=== PATIENT | male | born 1965 | race Caucasian/White ===

== ENCOUNTER 2023-05-29 11:50 | Emergency (ER) | payer BC, SELFPAY ==
--- NOTE | ~2023-05-29 | CT_ITS ---
EXAMINATION: 1. CT facial & cervical spine wo DATE: 05/29/2023 13:24 INDICATION: Headache and left-sided jaw pain post left-sided head/facial injury TECHNIQUE: 1. Computed tomography (CT) of the maxillofacial region and of the cervical spine were performed with out intravenous contrast. Sagittal and coronal reconstructions of both regions were obtained. Automat ed exposure control and iterative reconstruction technique were employed. The dose-length product was 406.02 mGy-cm. COMPARISON: None. FINDINGS: Maxillofacial CT: Bilateral temporomandibular joints remain in normal alignment with mild bilateral osteoarthritis. No maxillofacial fractures identified. Specifically the mandible, nasal bones, zygomatic arches and wall s of the orbits and paranasal sinuses remain normal. There is mild scattered mucoperiosteal thickenin g in the paranasal sinuses. Mastoid air cells and middle ear cavities are clear. Maxillofacial soft t issues are unremarkable with normal symmetric appearing bilateral parotid and submandibular glands. Cervical spine CT: 6 degrees cervical levocurvature. Straightening of the normal cervical lordosis. No spondylolisthesis or facet subluxation. Vertebral body heights are normal. No acute fractures. Moderate osteoarthritis at the atlantoaxial articulation. Moderate disc height loss at C4-C5, C6-C7 and C7-T1 and mild disc height loss at C5-C6. Severe bilateral uncovertebral osteoarthritis at C4-C5, moderate uncovertebral osteoarthritis on the right at C6-C7 and on the left at C7-T1. Otherwise mild scattered cervical unco vertebral osteoarthritis. Disc bulges at C3-C4 through C6-C7 resulting in multilevel mild central can al stenosis greatest at C4-C5. There is multilevel mild cervical facet osteoarthritis. There is multi level cervical neural foraminal stenosis, mild to moderate severity on the right at C3-C4 and bilater ally at C7-T1 with mild stenosis at many of the remaining cervical neural foramina. Cervical soft tis sues are unremarkable. IMPRESSION: 1. No maxillofacial fractures. 2. Moderate cervical spondylosis without acute osseous abnormality. Reviewed, dictated and finalized at location B.
--- NOTE | ~2023-05-29 | CT_ITS ---
Non-contrast Head CT History: Head injury Technique: Axial non-contrast imaging of the brain was performed. Dose reduction technique was used on this scan by utilizing automated exposure control and iterative reconstruction technique. The dose -length product (DLP) was 605.33 mGy-cm. Findings: There is no evidence of intracranial hemorrhage, mass lesion, or acute infarct. Brain par enchyma appears normal. The ventricles and subarachnoid spaces are normal in size. The calvarium ap pears normal. The visualized paranasal sinuses and mastoid air cells are clear. Impression: No significant abnormality seen. Reviewed, dictated and finalized at location . Impression: No significant abnormality seen.
[2023-05-29 11:50] VITALS: BP 141/96; PULSE 106; RESP 18; TEMP 36.3; O2SAT 97
--- NOTE | 2023-05-29 11:59 | ED.HEATRA ---
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 He lacerated his left tongue. Complaint: head injury ( Face injury left side) Onset (ago): hour(s) (1) Mechanism of Injury: work related injury ( propane tank/ wood board to the face left side) Place: work Loss of Consciousness: no Location of injury: face ( left side) Severity: moderate Severity scale (1-10): 4 Quality: sharp Radiation: none Other Injuries: laceration ( left tongue) Associated symptoms: denies other symptoms Related Data Home Medications Medication Instructions Recorded Confirmed cholecalciferol (vitamin D3) 1,250 1,250 mcg PO WEEKLY 12/06/21 05/29/23 mcg (50,000 unit) capsule denosumab 60 mg/mL subcutaneous 60 mg subcut [id number] 12/06/21 05/29/23 syringe (Prolia) naproxen 500 mg tablet 500 mg PO BID 12/06/21 05/29/23 Allergies Allergy/AdvReac Type Severity Reaction Status Date / Time No Known Allergies Allergy Verified 05/29/23 12:03 Review of Systems Review of Systems: All systems reviewed & are unremarkable except as noted in HPI and below Constitutional: Constitutional: Reports no additional constitutional complaints Eyes: Eyes: Reports no additional eye complaints ENT: Reports system reviewed and no additional complaints, except as documented Cardiovascular: Cardiovascular: Reports no additional cardiovascular complaints Respiratory: Respiratory: Reports no additional respiratory complaints Gastrointestinal: Gastrointestinal: Reports no additional gastrointestinal complaints Genitourinary: Genitourinary: Reports no additional male genitourinary complaints Musculoskeletal: Musculoskeletal: Reports no additional musculoskeletal complaints Integumentary/Breasts: Skin/Breast: Reports system reviewed and no additional complaints, except as docu Neurologic: Reports system reviewed and no additional complaints, except as documented Psychiatric: Psychiatric: Reports no additional psychiatric complaints Endocrine: Endocrine: Reports no additional endocrine complaints Hematologic/Lymphatic: Hematologic/Lymphatic: Reports no additional hematologic/lymphatic complaints Allergic/Immunologic: Allergic/Immunologic: Reports no additional allergic/immunologic complaints PMFSH Past Medical History Medical History Arthritis Atypical nevi History of osteoporosis Hypercholesterolemia Hyperlipidemia Hypertension Hypertriglyceridemia Rash of foot Screening for prostate cancer Surgical History Surgical History Hx of colonoscopy Family History Family History Father Hypertension Heart disease Cerebrovascular accident Social History Social History Smoking status: Never smoker Alcohol intake: never Substance use: never Do You Feel Safe in your Home?: Yes Lack of Transportation: No Lack of Food: Never True Current Housing: I Have Housing Concerned About Future Housing: No Difficulty Paying Gas/Electric Bills: No Difficulty Paying for Meds: No Currently Unemployed: No Education: Don't Know Difficulty w/ Childcare or Family Care: No Living arrangements: with family Occupation/Education: occupation 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
[2023-05-29] MEDS: LIDOCAINE HCL 1% LOCAL INJ 10 ML VIAL 5 ML INFILTRATE (12:59)
--- NOTE | 2023-05-29 13:45 | PC.NURSE ---
PT IS AWAITING CT RESULTS AND ERP TO REPAIR TONGUE. PT DENIES ANY NEEDS OR COMPLAINTS. AT BEDSIDE. SUTURE SET UP IS READY AT BEDSIDE. WILL CONTINUE TO MONITOR.
--- NOTE | 2023-05-29 14:56 | PC.NURSE ---
ERP IS AT BEDSIDE SUTURING TONGUE. AT BEDSIDE. PT DENIES ANY NEEDS OR COMPLAINTS.
[2023-05-29 15:25] VITALS: BP 135/91; PULSE 66; RESP 16; O2SAT 94
== END 2023-05-29 15:25 | disposition home or self-care (01) ==
PROVIDERS: Emergency Provider Emergency Medicine; PCP Family Medicine
DX: S01.512A Laceration without foreign body of oral cavity, initial encounter (principal); S09.90XA Unspecified injury of head, initial encounter; S09.93XA Unspecified injury of face, initial encounter; W20.8XXA Other cause of strike by thrown, projected or falling object, initial encounter; I10 Essential (primary) hypertension; E78.00 Pure hypercholesterolemia, unspecified; E78.1 Pure hyperglyceridemia
CPT/HCPCS: 12011; 70450; 70486; 72125; 99284

== ENCOUNTER 2023-10-08 18:45 | Emergency (ER) | payer BC, SELFPAY ==
[2023-10-08 18:45] VITALS: BP 133/86; PULSE 108; RESP 18; TEMP 37.1; O2SAT 97
--- NOTE | 2023-10-08 19:54 | ED.GENADULT ---
HPI - General Adult General Chief complaint: Allergic Reaction Stated complaint: bee sting with swelling Time Seen by Provider: 10/08/23 18:49 History of Present Illness HPI narrative: Robert is a 57M with a PMH of HTN, and HLD as well as an allergy to bee stings that presented to the ED with a bee sting in his right arm shortly before arriving in the ED. There is no dyspnea, wheezing or airway swelling but his arm is swelling, itching and becoming painful. Related Data Home Medications Medication Instructions Recorded Confirmed cholecalciferol (vitamin D3) 1,250 1,250 mcg PO WEEKLY 12/06/21 10/08/23 mcg (50,000 unit) capsule denosumab 60 mg/mL subcutaneous 60 mg subcut [id number] 12/06/21 10/08/23 syringe (Prolia) naproxen 500 mg tablet 500 mg PO BID 12/06/21 10/08/23 Allergies Allergy/AdvReac Type Severity Reaction Status Date / Time bee venom protein (honey bee) Allergy Swelling Verified 10/08/23 19:29 Review of Systems Review of Systems: All systems reviewed & are unremarkable except as noted in HPI and below PMFSH Past Medical History Medical History Arthritis Atypical nevi History of osteoporosis Hypercholesterolemia Hyperlipidemia Hypertension Hypertriglyceridemia Rash of foot Screening for prostate cancer Surgical History Surgical History Hx of colonoscopy Family History Family History Father Hypertension Heart disease Cerebrovascular accident Social History Social History Smoking status: Never smoker Alcohol intake: never Substance use: never Do You Feel Safe in your Home?: Yes Lack of Transportation: No Lack of Food: Never True Current Housing: I Have Housing Concerned About Future Housing: No Difficulty Paying Gas/Electric Bills: No Difficulty Paying for Meds: No Currently Unemployed: No Education: Don't Know Difficulty w/ Childcare or Family Care: No Living arrangements: with family Occupation/Education: occupation 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: Yes Exam Const: General: cooperative, healthy appearing, comfortable, no acute distress, well developed, alert, awake and Physically active Orientation/consciousness: oriented to person, oriented to place and oriented to time HENMT: Head: normal to inspection, normocephalic and atraumatic Ears: hearing grossly normal bilaterally and external ears normal Face/Nose/Sinus: Normal external nose present Eyes: General: appearance normal, both eyes and all related structures Periorbital: periorbital findings normal Sclera: sclerae normal Pupils: Equal, round and reactive pupils present Neck: Neck: normal visual inspection Chest: Chest palpation & inspection: normal inspection of the chest Resp: Effort & Inspection: normal respiratory effort, able to speak in complete sentences and no respiratory distress Cardio: Jugular venous distension: no JVD Skin: General skin exam: normal color and no rashes or lesions noted Neuro: General: oriented to person, oriented to place and oriented to time Cranial nerves: Yes Equal, round and reactive pupils present Extrem: General: normal to inspection Other: diffusely swollen right arm and hand Course Course Emergency Course: given Benadryl, Pepsid and steroids. Vital Signs Vital signs: Vital Signs Temperature 98.8 F 10/08/23 18:45 Pulse Rate 108 H 10/08/23 18:45 Respiratory Rate 18 10/08/23 18:45 Blood Pressure 133/86 10/08/23 18:45 Pulse Oximetry 97 10/08/23 18:45 Oxygen Delivery Room Air 10/08/23 18:45 Temperature 98.8 F 10/08/23 18:45 Pulse Rate 108 H 10/08/23 18:45 Respiratory Rate 18 10/08/23 18:45 Blood Pressure 133/86 08
[2023-10-08] MEDS: diphenhydrAMINE HCl CAP 25 MG CAPSULE 50 MG PO (20:17)
[2023-10-08] MEDS: methylPREDNISolone SOD SUCC 125 MG VIAL IM (20:18)
[2023-10-08] MEDS: FAMOTIDINE 20 MG TABLET (20:19)
[2023-10-08 20:45] VITALS: BP 132/84; PULSE 89; RESP 18; TEMP 36.6; O2SAT 96
== END 2023-10-08 20:57 | disposition home or self-care (01) ==
PROVIDERS: Emergency Provider Family Medicine; PCP Nurse Practitioner Family
DX: T63.441A Toxic effect of venom of bees, accidental (unintentional), initial encounter (principal); M79.89 Other specified soft tissue disorders; E78.5 Hyperlipidemia, unspecified; I10 Essential (primary) hypertension; Z79.899 Other long term (current) drug therapy; Z79.1 Long term (current) use of non-steroidal anti-inflammatories (NSAID)
CPT/HCPCS: 96372; 99283; A9270; J2919